=== PATIENT | female | born 1945 | race Caucasian/White ===

== ENCOUNTER 2019-09-23 09:27 | Inpatient (IN) ==
[2019-09-23] MEDS ORDERED: NS 1,000 ML IV ONE ×2 (10:04→12:50)
--- NOTE | 2019-09-23 10:23 | PROVIDER DOCUMENTATION ---
HPI-Female /OB/Breast - General Chief Complaint: Flank Pain Stated Complaint: KIDNEY STONE Time Seen by Provider: 09/23/19 10:04 Source: reports: patient Allergies/Adverse Reactions: Patient Allergies Allergy/AdvReac Type Severity Reaction Status Date / Time No Known Allergies Allergy Verified 09/23/19 10:46 Home Medications: Home Medication List Medication Instructions Recorded Confirmed Last Taken Type Aspirin 325 mg PO DAILY 03/04/18 03/04/18 03/03/18 History Azathioprine [Imuran] 2 tab PO DAILY 03/04/18 03/04/18 03/03/18 History Cefdinir 300 mg PO BID 03/04/18 03/04/18 03/03/18 History Cholecalciferol (Vitamin D3) 1,000 unit PO DAILY 03/04/18 03/04/18 03/03/18 Hi story [Vitamin D3] Estradiol 0.5 tab PO DAILY 03/04/18 03/04/18 03/03/18 History Fenofibrate 160 mg PO DAILY 03/04/18 03/04/18 03/03/18 History Fexofenadine [Melyssa] 180 mg PO DAILY 03/04/18 03/04/18 03/03/18 History Fluticasone 50 Mcg Nasal [place] 1 spray MAXIMUS DAILY PRN 03/04/18 03/04/18 03/03/18 History [Flonase] Losartan [Cozaar] 25 mg PO DAILY 03/04/18 03/04/18 03/03/18 History Mesalamine 1.2 gm PO DAILY 03/04/18 03/04/18 03/03/18 History Metformin E.r. [Glucophage Xr] 2 ahfu PO DAILY 03/04/18 03/04/18 03/03/18 History Modafinil 200 mg PO DIRECTED 03/04/18 03/04/18 03/03/18 History Nitrofurantoin [facility]/Macrocryst 100 mg PO EVERY OTHER DAY 03/04/18 03/04/18 03/03/18 History [Macrobid] Omeprazole 20 mg PO DAILY 03/04/18 03/04/18 03/03/18 History Potassium Chloride 2 tab PO DAILY 03/04/18 03/04/18 03/03/18 History Potassium Citrate [Urocit-K] 15 meq PO BID 08/03/04/18 03/03/18 History Propafenone [Rythmol] 150 mg PO TID 03/04/18 03/04/18 03/03/18 History - History of Present Illness-Female /OB Nature of Presenting Problem: 74yof present to ER with c/o L flank pain onset last night states it has eased up some. Denies fever. Reports hx of kidney stones, with last being in March. Denies urinary s/s. Location of complaint: reports: left flank Radiation: reports: back Quality of Pain: reports: sharp Onset/Duration: reports: last night Timing: reports: still present, improving Vaginal Symptoms: reports: no symptoms Vaginal Bleeding Amount: None Urinary Symptoms: reports: low back pain. denies: dysuria, frequency, hematuria, hesitancy Review of Systems - Adult - REVIEW OF SYSTEMS - ADULT Constitutional: reports: no symptoms reported. denies: chills, fever Eyes: reports: no symptoms reported Ears, Nose, Mouth & Throat: reports: no symptoms reported Cardiovascular: reports: no symptoms reported Respiratory: reports: no symptoms reported. denies: shortness of breath Gastrointestinal: reports: no symptoms reported. denies: nausea, vomiting Genitourinary: reports: see HPI, flank pain. denies: dysuria, frequency, hematuria, hesitency, urgency Musculoskeletal: reports: see HPI, back pain Integumentary: reports: no symptoms reported Neurological: reports: no symptoms reported Psychiatric: reports: no symptoms reported Endocrine: reports: no symptoms reported Hematologic/Lymphatic: reports: no symptoms reported Allergic/Immunologic: reports: no symptoms reported All Other Systems: Reviewed and Negative Past History - Adult - PAST MEDICAL HISTORY-ADULT Review of Records: reports: Old Records Reviewed, Nursing Assessment Review, Medications Reviewed, Social history reviewed & non-contributory. Major Childhood Illnesses: reports: denies history Cardiovascular: reports: denies history Respiratory: reports: denies history Gastrointestinal: reports: cholelithiasis, Crohn's, GERD Obstetrical/Gynecological: reports: denies history Genitourinary: reports: denies history Musculoskeletal: reports: denies history Neurological: reports: denies history Psychiatric: reports: denies history Endocrine/Immune: reports: denies history Other Conditions: reports: denies history - PRIOR SURGERIES/PROCEDURES Surgical/Procedure History: reports: appendectomy, colonoscopy, cholecystectomy, hysterectomy, bowel surgery - FAMILY HISTORY Family History: diabetes, cancer - SOCIAL HISTORY Smoking: denies Physical Exam-General - PHYSICAL EXAM-ADULT Initial Vital Signs Reviewed: Yes - CONSTITUTIONAL General Appearance: alert, no apparent distress - HEAD, EARS, NOSE, MOUTH & THROAT HENMT: moist mucous membranes - NECK Neck: full range of motion, supple, normal inspection - RESPIRATORY Respiratory: lungs clear, normal breath sounds, no respiratory distress, no accessory muscle use - CARDIOVASCULAR Cardiovascular: regular rate, rhythm - GASTROINTESTINAL (ABDOMEN) Abdominal Exam: normal bowel sounds, non tender, soft. negative: distended, guarding, rigid, rebound - LYMPHATIC Lymphatic: no adenopathy - MUSCULOSKELETAL Back Exam: normal inspection, CVA tenderness (L) Extremity: normal range of motion, normal gait, normal inspection - SKIN Integumentary: normal color, warm/dry. negative: diaphoresis, pallor - NEUROLOGIC Neurologic: grossly normal, no motor/sensory deficits - PSYCHIATRIC Psych/Mental Status: normal mood/affect, normal thought content, normal thought process Progress - PLAN OF CARE/RESULTS Progress/Plan/Lab Results: Vital Signs - 8 hr 09/23/19 09:51 09/23/19 11:28 Temperature 97 F L Pulse Rate 90 90 Respiratory Rate 16 18 Blood Pressure 89/54 117/61 O2 Sat by Pulse Oximetry 98 97 Laboratory Results - last 24 hr 09/23/19 09/23/19 09/23/19 10:26 10:26 10:29 WBC 10.83 H RBC 3.78 L Hgb 11.8 L Hct 37.9 MCV 100.3 H MCH 31.2 H MCHC 31.1 L RDW Std Deviation 17.0 H Plt Count 307 MPV 9.4 Immature Gran % (Auto) 0.5 Neut % (Auto) 93.5 H Lymph % (Auto) 2.6 L [facility] % (Auto) 3.2 Eos % (Auto) 0.0 Baso % (Auto) 0.2 Immature Gran # (Auto) 0.05 H Neut # (Auto) 10.13 H Lymph # (Auto) 0.28 L [facility]lor # (Auto) 0.35 Eos # (Auto) 0.00 Baso # (Auto) 0.02 Sodium 140 Potassium 3.3 L Chloride 109 H Carbon Dioxide 13 L Anion Gap 18 BUN 24 H Creatinine 1.9 H Estimated GFR/1.73 m2 26 BUN/Creatinine Ratio 13 Glucose 146 H Calculated Osmolality 286 Calcium 8.9 Total Bilirubin 0.50 AST 13 ALT 5 L Alkaline Phosphatase 123 H Total Protein 5.8 L Albumin 3.6 Globulin 2.2 Albumin/Globulin Ratio 1.6 Lipase 58 Plasma Lactate Urine Source CLEAN CATCH Urine Color ORANGE Urine Turbidity TURBID Urine pH 6.5 Ur Specific [place] 1.030 Urine Protein 200 A Ur Glucose (Stick) NEGATIVE Ur Ketones (Stick) NEGATIVE Urine Blood MODERATE A Urine Nitrite NEGATIVE Urine Bilirubin NEGATIVE Urobilinogen Dipstick NORMAL Urine Leukocytes LARGE A Urine WBC (Auto) TNTC A Urine RBC (Auto) 20-40 A U Epithel Cells (Auto) <10 Urine Bacteria (Auto) 3+ Urine Crystals Not Reportable Small Round Cells Not Reportable Urine Casts GRANULAR PRESENT Urine Yeast-like Cells Not Reportable 09/23/19 11:50 WBC RBC Hgb Hct MCV MCH MCHC RDW Std Deviation Plt Count MPV Immature Gran % (Auto) Neut % (Auto) Lymph % (Auto) Baylor % (Auto) Eos % (Auto) Baso % (Auto) Immature Gran # (Auto) Neut # (Auto) Lymph # (Auto) [facility]lor # (Auto) Eos # (Auto) Baso # (Auto) Sodium Potassium Chloride Carbon Dioxide Anion Gap BUN Creatinine Estimated GFR/1.73 m2 BUN/Creatinine Ratio Glucose Calculated Osmolality Calcium Total Bilirubin AST ALT Alkaline Phosphatase Total Protein Albumin Globulin Albumin/Globulin Ratio Lipase Plasma Lactate 2.7 H Urine Source Urine Color Urine Turbidity Urine pH Ur Specific [place] Urine Protein Ur Glucose (Stick) Ur Ketones (Stick) Urine Blood Urine Nitrite Urine Bilirubin Urobilinogen Dipstick Urine Leukocytes Urine WBC (Auto) Urine RBC (Auto) U Epithel Cells (Auto) Urine Bacteria (Auto) Urine Crystals Small Round Cells Urine Casts Urine Yeast-like Cells Orders Category Date Time Status NEWS Score 2-4:Order NEWS Lactate Series NOW Care 09/23/19 09:56 Active Repeat Vital Signs .Blood Pressure Care 09/23/19 10:[address] RENAL STONE SEARCH [CT] Stat Exams 09/23/19 10:29 Completed BLOOD CULTURE [BLDCUL] Stat Lab 09/23/19 11:40 Results CBC WITH DIFF [HEME] Stat Lab 09/23/19 10:26 Completed COMPREHENSIVE METABOLIC PANEL [CHEM] Stat Lab 09/23/19 10:26 Completed LACTATE, PLASMA [CHEM] Lab 09/23/19 11:50 Completed LACTATE, PLASMA [CHEM] Lab 09/23/19 13:00 Uncollected LACTATE, PLASMA [CHEM] Lab 09/23/19 16:00 Uncollected LIPASE [CHEM] Stat Lab 09/23/19 10:26 Completed URINALYSIS W/POSS RFLX CULT [URINALYSIS] Stat Lab 09/23/19 10:29 Completed URINE CULTURE [RM] Routine Lab 09/23/19 12:18 Ordered URINE MANUAL MICROSCOPIC [URINALYSIS] Stat Lab 09/23/19 10:29 Completed 0.9% Sodium Chloride Inj [Ns] 1,000 ml Med 09/23/19 10:04 Discontinued IV 999 mls/hr 0.9% Sodium Chloride Inj [Ns] 1,000 ml Med 09/23/19 12:50 Active IV 999 mls/hr CefTRIAXONE [Rocephin] 1 gm Med 09/23/19 10:56 Discontinued 0.9% Sodium Chloride Inj [Ns] 50 ml IV NOW Result Diagrams: 09/23/19 10:26 09/23/19 10:26 - REASSESSMENT Reassessment #1 Time Reassessed: 12:25 (discussed pt with Dr Combs, agrees need for possible admission and suggests consulting urology. Reviewed results thus far with pt and family member. Pt states pain is tolerable at this time ) - CT/MRI 2 CT Study: Renal Stone Impression: See EMR Report (EXAM: CT RENAL STONE SEARCH INDICATION: flank pain TECHNIQUE: This exam was performed using automated exposure control, adjustment of mA or kV according to patient size, and/or use of iterative reconstruction technique. COMPARISON: None. FINDINGS: There is a tiny hypodense focus associated with the posterior right hepatic lobe, likely a small cyst. The liver is unremarkable, otherwise. There has been a prior cholecystectomy. The spleen, pancreas, and adrenal glands are unremarkable. There is a large 9 mm obstructing stone at the left UPJ with associated moderate to severe hydronephrosis. There is extensive perinephric stranding on the left. There are a couple of punctate nonobstructing intrarenal stones on the right. The urinary bladder is largely nondistended and is grossly unremarkable, otherwise. There has been a prior hysterectomy. There is mild uncomplicated diverticulosis coli. There is fatty infiltration associated with the wall of the distal small bowel, which is often associated with chronic Crohn's disease, for which there is a reported history. The duodenal bulb also appears to be distended and there is mild focal narrowing of the duodenum just distal to this. These findings could be related to previous surgery. Please correlate clinically. IMPRESSION: 1.Bilateral nephrolithiasis with a large 9 mm obstructing stone at the left UPJ and associated moderate to severe left hydronephrosis. 2.Other incidental/nonacute findings detailed above. Electronically signed by Chad Fuentes 09/23/2019 12:01 PM) - CONSULTS/PCP/HOSPITALIST Notification #1 *Consult/PCP/Hospitalist*: Dr Harrell Time Discussed: 12:30 (may consult him but states "no urological emergency" at this time.) #2 Consult: Maci LANZA Time Discussed: 12:57 (Dr Stanton) Consult Disposition: Admit Departure - Departure Date of Disposition Decision: 09/23/19 Time of Disposition Decision: 12:25 DIAGNOSIS: Nephrolithiasis, Acute kidney injury Hydronephrosis Qualifiers: Hydronephrosis type: unspecified Qualified Code(s): N13.30 - Unspecified hydronephrosis UTI (urinary tract infection) Qualifiers: Urinary tract infection type: acute cystitis Hematuria presence: with hematuria Qualified Code(s): N30.01 - Acute cystitis with hematuria Disposition: ADMITTED INPATIENT 09 Certified Medical Emergency: Emergent Condition: Fair Referrals and Follow-Ups: Darion Joya DO [Primary Care Provider] - - Critical Care Note This patient required my direct & personal management of CC.: No Attestation - Physician/ LUDY Attestation Patient care was provided by Advanced Practice Provider:: Yes Advanced Practice Provider:: Janet Contreras Advanced Practice Provider documentation review:: The Mid-level provider documentation, treatment plan and medical decision making was reviewed by the physician who agrees with all treatment and medical decision making by the MLP. The physician spent face to face time with patient:: No Advanced Practice Provider documentation review:: Supervising physician onsite and consulted in the evaluation and care of this patient. The physician did not have a face to face encounter with the patient.
[2019-09-23 10:36] LABS: URINE SOURCE CLEAN CATCH
[2019-09-23 10:41] LABS: BASO# 0.02 X1000 (0.0-0.2); BASO% 0.2 % (0.0-0.8); HEMATOCRIT 37.9 % (37.0-47.0); HEMOGLOBIN 11.8 g/dL (12.0-16.0); IMM GRAN# 0.05 X1000 (0.0-0.04); IMM GRAN% 0.5 % (0.0-0.5); LYMPH# 0.28 X1000 (1.2-3.4); LYMPH% 2.6 % (20.5-51.1); MCH 31.2 PG (27-31); MCHC 31.1 g/dL (33-37); MCV 100.3 FL (81-99); MONO# 0.35 X1000 (0.11-0.59); MONO% 3.2 % (1.7-9.3); MPV 9.4 FL (7.4-10.4); NEUT# 10.13 X1000 (1.4-6.5); NEUT% 93.5 % (42.2-75.2); PLT 307 X1000 (130-400); RBC 3.78 XMIL (4.2-5.4); WBC 10.83 X1000 (4.8-10.8)
[2019-09-23 10:44] LABS: BILIRUBIN URINE NEGATIVE (NEGATIVE); BLOOD URINE MODERATE (NEGATIVE); COLOR ORANGE; GLUCOSE URINE NEGATIVE (NEGATIVE); KETONE URINE NEGATIVE (NEGATIVE); LEUKOCYTES URINE LARGE (NEGATIVE); NITRITE URINE NEGATIVE (NEGATIVE); PH URINE 6.5; PROTEIN URINE 200 mg/dL (NEGATIVE); TURBIDITY URINE TURBID (CLEAR); UROBILINOGEN URINE NORMAL (NORMAL)
[2019-09-23 10:55] LABS: UR EPITHELIAL CELLS <10 /HPF (<10); URINE BACTERIA 3+ /HPF; URINE RBC 20-40 /HPF (<10); URINE WBC TNTC /HPF (<10)
[2019-09-23] MEDS ORDERED: ROCEPHIN 1 GM in NS 50 ML IV ONE (10:56)
[2019-09-23 11:00] LABS: ALB/GLOB RATIO 1.6; ALBUMIN 3.6 g/dL (3.5-5.0); CALCIUM 8.9 mg/dL (8.8-10.2); CREATININE 1.9 mg/dL (0.5-0.9); POTASSIUM 3.3 mmol/L (3.5-5.1); TOTAL BILIRUBIN 0.5 mg/dL (0.20-1.00); TOTAL PROTEIN 5.8 g/dL (6.3-8.3)
[2019-09-23 11:09] LABS: URINE CASTS GRANULAR PRESENT
--- NOTE | 2019-09-23 12:03 | Diag Imaging Result Doc PS360 ---
EXAM: CT RENAL STONE SEARCH INDICATION: flank pain TECHNIQUE: This exam was performed using automated exposure control, adjustment of mA or kV according to patient size, and/or use of iterative reconstruction technique. COMPARISON: None. FINDINGS: There is a tiny hypodense focus associated with the posterior right hepatic lobe, likely a small cyst. The liver is unremarkable, otherwise. There has been a prior cholecystectomy. The spleen, pancreas, and adrenal glands are unremarkable. There is a large 9 mm obstructing stone at the left UPJ with associated moderate to severe hydronephrosis. There is extensive perinephric stranding on the left. There are a couple of punctate nonobstructing intrarenal stones on the right. The urinary bladder is largely nondistended and is grossly unremarkable, otherwise. There has been a prior hysterectomy. There is mild uncomplicated diverticulosis coli. There is fatty infiltration associated with the wall of the distal small bowel, which is often associated with chronic Crohn's disease, for which there is a reported history. The duodenal bulb also appears to be distended and there is mild focal narrowing of the duodenum just distal to this. These findings could be related to previous surgery. Please correlate clinically. IMPRESSION: 1.Bilateral nephrolithiasis with a large 9 mm obstructing stone at the left UPJ and associated moderate to severe left hydronephrosis. 2.Other incidental/nonacute findings detailed above. Electronically signed by Chad Fuentes 09/23/2019 12:01 PM
[2019-09-23] MEDS ORDERED: NS 500 ML IV ONE (13:01)
[2019-09-23 13:57] LABS: INR 1.06; PROTIME 13.9 Seconds (11.0-16.0)
[2019-09-23 13:58] LABS: PTT 33.3 Seconds (22.3-41.8)
--- NOTE | 2019-09-23 14:00 | Diag Imaging Result Doc PS360 ---
EXAM: CHEST-1 VIEW 09/23/2019 HISTORY: NEWS score TECHNIQUE: AP portable at 1348 COMMENT: There is platelike opacity in the lingula which was also present on 03/04/2018. Otherwise are has been no significant change. IMPRESSION: Stable chest. Electronically signed by Richard Gregg 09/23/2019 1:57 PM
[2019-09-23] MEDS: NS 1,000 ML IV SCH (15:03)
[2019-09-23] MEDS ORDERED: ZOFRAN IV PRN (15:03)
[2019-09-23] MEDS: TYLENOL PO PRN (15:15)
[2019-09-23] MEDS ORDERED: ZOSYN 3.375 GM in NS 50 ML IV SCH (17:00)
[2019-09-23] MEDS ORDERED: KLOR-CON PO ONE (17:23)
[2019-09-23] MEDS: ZOSYN 2.25 GM in NS 50 ML IV SCH ×2 (18:00→23:30)
--- NOTE | 2019-09-23 18:14 | EKG Report ---
Test Performed on : 09/23/2019 5:38:48 PM Test Reason : afib Blood Pressure : / mmHG Vent. Rate : 099 BPM Atrial Rate : 100 BPM P-R Int : 200 ms QRS Dur : 080 ms QT Int : 314 ms P-R-T Axes : 047 -05 073 degrees QTc Int : 402 ms Sinus rhythm. with premature supraventricular complexes. Inferior infarct (cited on or before 04-MAR-2018) Cannot rule out Anterior infarct , age undetermined Nonspecific T wave abnormality Abnormal ECG When compared with ECG of 04-MAR-2018 08:45, premature supraventricular complexes. are now present Nonspecific T wave abnormality, worse in Inferior leads Nonspecific T wave abnormality, worse in Anterolateral leads Confirmed by Demian Jimenez MD ([id number]) on 09/23/2019 8:30:39 PM
[2019-09-23] MEDS ORDERED: LEVOPHED 8 MG in D5 1/2 NS 250 ML IV SCH (18:15)
--- NOTE | 2019-09-23 19:24 | HISTORY AND PHYSICAL ---
ADDENDUM: The patient was seen and examined by me face to face. The laboratory, vital signs and images were reviewed. This patient presented to the emergency department due to left flank pain that started yesterday during the night. She has a history of Crohn disease, previous kidney stones, and actually she apparently had surgery done last year in March at [facility]. She denies any urinary symptoms, but the urinalysis looks infected. She has CVA tenderness. A CT scan showed a 9 mm obstructing stone at the left UPJ and associated moderate to severe left hydronephrosis. Urology Department has been consulted. She has been placed on antibiotics and IV fluids. The problem is that her blood pressure has been running low even though she received at least 3 L of IV fluids and now she is getting normal saline at 125 mL/h. Her systolic blood pressure has been in the 80s and 90s. I will transfer this patient to the ICU just in case I need to use a vasopressor. As per the patient, she has a history of atrial fibrillation that is controlled with Rythmol, but at this moment, she is on sinus rhythm. Also she has a history of diabetes, and I do not see any insulin listed but metformin. I will hold for now any blood pressure medication. I will try to avoid as much as we can pain medication. She seems to have an acute on chronic kidney disease. Continue with IV fluids. The patient will be transferred to the ICU. She will be placed on IV fluids. She will be on broad-spectrum antibiotics. She had a fever of 101.7. She has a history of kidney stones, and she had a surgery last March because of that. She is septic. I agree with the rest of the nurse practitioner's assessment and plan. cc: Carlitos Fletcher MD
--- NOTE | 2019-09-23 20:00 | CONSULTATION ---
DATE OF CONSULTATION: 09/23/2019 REQUESTING PHYSICIAN: Emergency department. REASON FOR CONSULTATION: Left obstructing stone, hydronephrosis and flank pain. HISTORY OF PRESENT ILLNESS: This is a 74-year-old female with a previous history of recurrent urolithiasis who has been followed by Dr. Angel in [place] who developed severe left flank pain 1 day ago. She stated that the pain was in the flank and back. It has been intermittent. It has been severe up to a 10/10 scale. It does not radiate. Nothing made it better. Nothing made it worse. The pain was sharp in quality. She reports associated vomiting. She reports associated chills but denies documented fevers. Her past medical history is significant for Crohn disease, and she was attributing having stones on account of being dehydrated from Crohn's. She has had several procedures endoscopically to remove her stones, with the most recent one reportedly in March 2019 on the right side. PAST MEDICAL HISTORY: Crohn disease, allergic rhinitis, hypertension, diabetes mellitus. PAST SURGICAL HISTORY: Hysterectomy, cholecystectomy, appendectomy, colectomy for Crohn's, resection of ilium for Crohn disease, several ureteroscopies with laser lithotripsy and stone basket extraction with stent. ALLERGIES: No known drug allergies. HOME MEDICATIONS: Potassium citrate, potassium chloride, metformin, losartan, Melyssa, estradiol, fenofibrate, Imuran, aspirin. SOCIAL HISTORY: Denies tobacco, alcohol or illicit drug use. FAMILY HISTORY: Her daughter has extensive urolithiasis. REVIEW OF SYSTEMS: Reviewed and 12 systems negative except for the HPI. PHYSICAL EXAMINATION: T 101.7, P 107, BP 144/69.General: Pleasant female in no acute distress. HEENT: Normocephalic, atraumatic. Cardiovascular: Tachycardic. Regular rhythm. Pulmonary: Bilateral breath sounds. Abdomen: Soft, nontender, nondistended. Well-healed midline scar. Back: No CVA tenderness. Lymphatic: No cervical lymphadenopathy. No groin lymphadenopathy. Dermatologic: No obvious skin rashes. Neurologic: Alert and oriented x3. Psychiatric: Appropriate mood and affect. PERTINENT LABORATORY DATA: White cell count is 11,000. Creatinine is 1.9. Glucose is 146. Urinalysis is positive for bacteria, blood and white cells. PERTINENT IMAGES: CT abdomen and pelvis with renal stone search on 09/23/2019 revealing 2 mm and 2 mm right renal stones as well as a 9 mm left ureteropelvic junction stone with obstruction, with hydronephrosis and perinephric stranding. ASSESSMENT AND PLAN: A 74-year-old female with history of urolithiasis who has an obstructing left ureteral stone. She has documented fever. She currently states she is feeling better, and her pain is well controlled. I have discussed with her that given her concomitant diabetes, hydronephrosis and urinary tract infection, she would benefit from intervention with cystoscopy with ureteral stent placement and treatment for urinary tract infection, followed by left extracorporeal shockwave lithotripsy and stent removal at a later date. We discussed the risks of the procedure, including but not limited to bleeding, infection, injury to the adjacent structures and need for additional interventions. She voiced understanding and wished to proceed. PLAN: 1. I agree with IV fluids and broad-spectrum antibiotics for now. 2. Agree with urine culture and blood cultures. 3. N.p.o. after midnight for going to operating room tomorrow for cystoscopy and left ureteral stent placement. Thank you for this consultation. cc: Imtiaz Harrell MD
[2019-09-23] MEDS: HUMALOG SUBQ SCH (20:52)
[2019-09-24] MEDS: NS 1,000 ML IV SCH (00:28)
[2019-09-24] MEDS: TYLENOL PO PRN ×2 (06:10→17:21)
[2019-09-24] MEDS: ZOSYN 2.25 GM in NS 50 ML IV SCH ×4 (06:10→23:15)
[2019-09-24] MEDS: PRILOSEC PO SCH (07:23)
[2019-09-24] MEDS: HUMALOG SUBQ SCH ×4 (07:28→22:31)
[2019-09-24 08:25] LABS: AGAP 17; ALBUMIN 2.3 g/dL (3.5-5.0); ALKALINE PHOSPHATASE 77 U/L (32-104); BASO# 0.01 X1000 (0.0-0.2); BASO% 0.1 % (0.0-0.8); BUN 19 mg/dL (8-22); CALCIUM 7.6 mg/dL (8.8-10.2); CHLORIDE 118 mmol/L (98-107); COSMO 287; CREATININE 1.7 mg/dL (0.5-0.9); EOS# 0.02 X1000 (0.0-0.7); EOS% 0.3 % (0.0-10.0); ESTIMATED GFR 29; GLUCOSE 98 mg/dL (70-104); GOT 15 U/L (10-30); GPT < 5 U/L (10-36); HEMOGLOBIN 8.4 g/dL (12.0-16.0); IMM GRAN# 0.03 X1000 (0.0-0.04); IMM GRAN% 0.4 % (0.0-0.5); LYMPH# 0.31 X1000 (1.2-3.4); LYMPH% 4.4 % (20.5-51.1); MCH 30.7 PG (27-31); MCV 102.2 FL (81-99); MONO# 0.64 X1000 (0.11-0.59); MONO% 9.1 % (1.7-9.3); MPV 9.2 FL (7.4-10.4); NEUT% 85.7 % (42.2-75.2); PLT 201 X1000 (130-400); RBC 2.74 XMIL (4.2-5.4); RDW 17.1 % (11.5-14.5); SODIUM 143 mmol/L (136-145); TCO2 8 mmol/L (25-35); TOTAL BILIRUBIN 0.34 mg/dL (0.20-1.00); TOTAL PROTEIN 4.7 g/dL (6.3-8.3); WBC 7.01 X1000 (4.8-10.8)
[2019-09-24 08:26] LABS: MAGNESIUM 0.9 mg/dL (1.5-2.7); POTASSIUM 2.5 mmol/L (3.5-5.1)
[2019-09-24] MEDS ORDERED: MAGNESIUM SULFATE 2 GM/S.W.I. 2 GM/50 ML IVPB IV ONE (08:32)
[2019-09-24] MEDS ORDERED: POTASSIUM CHLORIDE 20% LIQUID PO ONE (08:32)
[2019-09-24 08:54] LABS: HEMOGLOBIN A1C 5.6 % (4.8-6.0)
--- NOTE | 2019-09-24 08:56 | PROGRESS NOTE ---
DATE: 09/24/2019 SUBJECTIVE: This patient is resting comfortably in bed. She is still complaining of left flank pain. Hopefully, today she will go for a procedure so they can remove the stone. Urology Department on board. OBJECTIVE: Vital Signs: Temperature 98.9 degrees, pulse 100, respiratory rate 19, blood pressure 106/48, oxygen saturation 97% on 2 liters of nasal cannula. HEENT: Head normocephalic, no trauma. PERRLA. Neck: Supple. No JVD. No masses. Central trachea. Chest: Clear to auscultation. No wheezing. No rales. Abdomen: Soft, some discomfort to palpation at the level of the left flank, some CVA tenderness as well. Extremities: No edema, no clubbing, no cyanosis. Neurological: Patient is sleepy, but arousable. She is oriented x3. She is following commands and answering my questions. LABORATORY: Pending lab work at this moment. ASSESSMENT AND PLAN: 1. Obstructing left ureteral stone with hydronephrosis. She has been having fever. I will continue with intravenous fluids. I will continue with antibiotics. Urine culture and blood cultures so far negative. Hopefully, today she will have a procedure done so we can remove the stone. 2. History of Crohn disease. We will continue with her home medications once this patient is able to tolerate oral intake. 3. Hypertension, stable. 4. Diabetes, continue with same management. 5. Possible history of atrial fibrillation. As per the patient she has been taking Rythmol 3 times a day to control the rate, but she is not on any kind of blood thinners. During this hospitalization, she has been in sinus rhythm. 6. Sepsis due to urinary tract infection, aware. Continue with same management. 7. Electrolyte imbalance including hypomagnesemia and hypokalemia. We will recheck the electrolytes today again and monitor. cc: Carlitos Fletcher MD
[2019-09-24] MEDS: POTASSIUM CHLORIDE 20 MEQ in 1/2 NS 1,000 ML IV SCH ×2 (09:44→21:49)
[2019-09-24] MEDS ORDERED: FENTANYL ONE (10:30)
[2019-09-24 10:41] LABS: BANDS 6 % (0-1); LYMPHS 4 % (21-51); MONO 6 % (1-9); SEGS 84 % (42-75)
--- NOTE | 2019-09-24 12:46 | HISTORY AND PHYSICAL ---
PRIMARY CARE PROVIDER: Dr. Darion Joya. UROLOGY: Dr. Moore GASTROENTEROLOGY: Dr. Vance. CHIEF COMPLAINT: Kidney stones. HISTORY OF PRESENT ILLNESS: Ms. Arciniega is a 74-year-old female with a past medical history of multiple kidney stones in the past, atrial fibrillation, Crohn's disease, GERD, hypertension, hyperlipidemia. She come to the ED today complaining of left flank pain that started the night before. Workup in the ED showed bilateral nephrolithiasis with a large 9 mm obstructing stone at the left UPJ associated with moderate to severe left hydronephrosis. She was also found to be septic, given IV fluid boluses, started on Rocephin. We have changed her over to Zosyn. Dr. Harrell was consulted and she was moved to the ICU with p.r.n. Levophed drip secondary to some low blood pressures. PAST MEDICAL HISTORY: Kidney stones, Crohn's disease, GERD, atrial fibrillation, hypertension, hyperlipidemia, arthritis. She wears braces on both of her ankles. Diabetes mellitus type 2, on oral medication only. PAST SURGICAL HISTORY: Appendectomy, colonoscopy, cholecystectomy, hysterectomy. Sounds like she has had some portions of her colon taken out secondary to her Crohn's disease. FAMILY HISTORY: Sister with breast cancer. Another sister with diabetes. A brother with diabetes. ALLERGIES: No known drug allergies. HOME MEDICATIONS: Melyssa, Cozaar, Flonase, Glucophage XR, Imuran, Lialda, Lipitor, Neurontin, potassium, Prilosec, Provigil, Rythmol, Travatan Z, vitamin D3. REVIEW OF SYSTEMS: A 12-point review of systems completely negative except for those mentioned in HPI. She did report some fevers and some chills. Left CVA tenderness. No chest pain. No palpitations. No shortness of breath. Reported fevers at home that started on 09/23/2019. PHYSICAL EXAMINATION: VITAL SIGNS: Temperature is 101.7 degrees, heart rate 114, respirations 24, blood pressure was 75/42, O2 is 94% on 2 L nasal cannula. GENERAL: Ms. Arciniega is a 74-year-old female who is sitting up in the bed in no acute distress, complaining of some left-sided CVA tenderness. HEENT: Atraumatic, normocephalic. PERRL. NECK: Supple. Trachea midline. CARDIOVASCULAR: S1-S2 appreciated. No murmurs, gallops or rubs. RESPIRATORY: Lung sounds clear bilaterally. GI: Soft, nontender, nondistended. Positive bowel sounds in 4 quadrants. Left CVA tenderness. MUSCULOSKELETAL: Patient does have braces on both her right and left ankles secondary to arthritis. Did not really appreciate any lower extremity edema, clubbing, or cyanosis. SKIN: Warm, dry and intact. DIAGNOSTIC DATA: Renal CT showed bilateral nephrolithiasis with large 9 mm obstructing stone at the left UPJ associated with moderate to severe left hydronephrosis. Chest x- ray clear. EKG showed sinus rhythm with PVCs, nonspecific T-wave abnormalities. LABORATORY DATA: White count 10, hemoglobin and hematocrit 11 and 37, platelet count is 307,000. Sodium 140, potassium 3.3, BUN 24, creatinine 1.9, blood glucose of 146, magnesium 1.2, troponin of 20, CK of 24. Urinalysis: 3+ bacteria, 20 to 40 RBCs, too numerous to count WBCs, large leukocytes, negative for nitrates, moderate blood. Urine casts present. ASSESSMENT AND PLAN: 1. A 9 mm obstructing stone to the left UPJ associated with left hydronephrosis and positive for urinary tract infection. We will continue with aggressive IV hydration, broad-spectrum antibiotics and pain control. Dr. Harrell has been consulted. I believe the plan is to take her for a cystoscopy in the a.m. for stent placement. 2. Septic shock. The patient was given IV fluids, broad-spectrum antibiotics, blood cultures, urine culture. Her temperature went up to 101.7. We will place her in the intensive care unit if she has a drop in her blood pressures down to the 70s, 80s and 90s for p.r.n. Levophed. 3. Atrial fibrillation, currently in sinus rhythm. She is not currently on any anticoagulation. She does not know why she has not been placed on anticoagulation for her atrial fibrillation. 4. Crohn's disease history with removal of bowel in the past. 5. Diabetes mellitus. We will place her on sliding scale insulin with pattern blood sugars. Check hemoglobin A1c. 6. History of kidney stones, aware. I believe she last had some removed back in March at [facility] where she normally receives all of her care. 7. Urinary tract infection. We will continue with broad-spectrum antibiotics. 8. Acute kidney injury, question some chronic kidney disease. 9. Mild hypokalemia. We will continue to monitor given the increase in her BUN and creatinine. 10. Hypomagnesemia. Will replenish as appropriate. 11. Further recommendation to follow physician evaluation, laboratory and diagnostic data. Dictated by MYLA Rogers for Carlitos Fletcher MD cc: MD Darion Go DO Sergey S. Ananyev, MD MTDCharity
--- NOTE | 2019-09-24 14:16 | Diag Imaging Result Doc PS360 ---
EXAM: FLUROSCOPY CYSTO 09/24/2019 HISTORY: PLACEMENT OF JJ STENT FOR UPJ STONE TECHNIQUE: 10 images, 4.3 mGy, 14 seconds fluoroscopy time. COMMENT: There is placement of a left ureteral stent by Dr. Harrell. No contrast was administered. IMPRESSION: Left ureteral stent placement. Electronically signed by Richard Gregg 09/24/2019 2:14 PM
[2019-09-24] MEDS: RYTHMOL PO SCH (17:06)
--- NOTE | 2019-09-24 18:54 | OPERATIVE NOTE ---
PROCEDURE DATE: 09/24/2019 SURGEON: Dr. Imtiaz Harrell PREOPERATIVE DIAGNOSES: Left ureteropelvic junction stone, hydronephrosis, urinary tract infection, hypertension, fevers, diabetes mellitus. POSTOPERATIVE DIAGNOSES: Left ureteropelvic junction stone, hydronephrosis, urinary tract infection, hypertension, fevers, diabetes mellitus. PROCEDURE NAME: Cystoscopy, placement of 6-Chilean, 24 cm ureteral stent. INDICATIONS: 74-year-old female with diabetes and history of kidney stones who presented with left flank pain and chills. She was found to have a 9 mm obstructing left ureteropelvic junction stone with hydronephrosis. She developed hypotension in the ER. She was admitted and resuscitated with fluids. She was counselled on cysto and left stent placement followed by treatment of her UTI followed by extracorporeal shockwave lithotripsy and stent removal in the future. FINDINGS: She had a bladder full of cloudy urine. Successful stent placement. DESCRIPTION OF PROCEDURE: After obtaining informed consent, patient brought to the operating room. Preoperative antibiotics and anesthesia was administered. She was placed in a lithotomy position. Prepped and draped in a sterile fashion. A 21-Chilean rigid cystoscope was introduced. Her bladder was inspected. She had a full bladder with cloudy urine which was irrigated. The bladder was briefly examined. There was no evidence of mucosal lesions, excessive trabeculations, or diverticula noted. She did have a fairly capacious bladder. Attention was turned to the left ureteral orifice which was cannulated with PTFE wire. It was advanced to the level of left renal pelvis as confirmed by fluoroscopy. We then introduced a 6-Chilean, 24 cm stent over the wire via the cystoscope with the proximal coil position confirmed fluoroscopically. Distal coil directly visualized. The string was removed from the stent. Bladder was emptied and a 16-Chilean Russell catheter was introduced. She was extubated and taken to PACU for further recovery. ESTIMATED BLOOD LOSS: None. COMPLICATIONS: None. DRAINS: A 6-Chilean 24 cm stent. A 16-Chilean Russell catheter. DISPOSITION: To PACU and back to ICU for close observation. I have discussed with her daughter postoperatively that once her UTI is treated, we can perform extracorporeal shockwave lithotripsy and cysto stent removal on an outpatient basis. cc: Imtiaz Harrell MD
[2019-09-24] MEDS: MORPHINE IV PRN (21:49)
[2019-09-25] MEDS: TYLENOL PO PRN ×4 (02:42→20:55)
[2019-09-25] MEDS: PRILOSEC PO SCH (06:15)
[2019-09-25] MEDS: POTASSIUM CHLORIDE 20 MEQ in 1/2 NS 1,000 ML IV SCH ×3 (06:15→20:33)
[2019-09-25] MEDS: ZOSYN 2.25 GM in NS 50 ML IV SCH (06:16)
[2019-09-25] MEDS: HUMALOG SUBQ SCH ×4 (06:36→20:33)
--- NOTE | 2019-09-25 08:20 | Diag Imaging Result Doc PS360 ---
EXAM: CHEST-PORTABLE 09/25/2019 HISTORY: sob TECHNIQUE: AP portable upright at 0755 COMMENT: There is subsegmental atelectasis present in the lingula and both lower lobes. This has not changed appreciably since 09/23/2019. The inspiration is slightly less optimal. IMPRESSION: Bibasilar atelectasis. Electronically signed by Richard Gregg 09/25/2019 8:17 AM
--- NOTE | 2019-09-25 08:56 | PROGRESS NOTE ---
DATE: 09/25/2019 SUBJECTIVE: The patient seems to be stable. She is not complaining of pain at this moment. She had a procedure done yesterday with Urology Department. She is slightly tachycardic. Blood pressure has been in the 100s. Pending lab work today. OBJECTIVE: Vital Signs: Temperature 98 degrees, pulse 102, respiratory rate 18, blood pressure 109/66, oxygen saturation 99 on 3 L of nasal cannula. HEENT: Head normocephalic. No trauma. PERRLA. Neck: Supple. No JVD. No masses. Central trachea. Chest: Clear to auscultation. No wheezing. No rales. Abdomen: Soft. Some discomfort to palpation at the level of the left flank. Mild CVA tenderness as well. Extremities: No edema, no clubbing, no cyanosis. Neurological: The patient is awake, alert. She is oriented x3. She is following commands and answering my questions. LABORATORY: Pending lab work at this moment. ASSESSMENT AND PLAN: 1. Obstructing left ureteral stone with left hydronephrosis status post cystoscopy exam with placement of 6-Burundian ureteral stent. This has been done yesterday, postoperative day #1. Urology Department already discussed the case with her daughter and we are going to treat the UTI first and then they will perform an extracorporeal shockwave lithotripsy cysto stent removal on an outpatient basis. 2. Urinary tract infection with a positive culture that showed Escherichia coli which is basically pansensitive. Blood culture is negative. I will go ahead and stop the Zosyn IV and put her on levofloxacin which has a good sensitivity to this bacteria and upon discharge, she can continue taking it at home by mouth. 3. History of Crohn's disease. Continue with her home medications. 4. Hypertension, stable. Actually she has been in the 100s mostly. 5. Diabetes. Continue with same management. 6. Possible history of atrial fibrillation. This patient has been taking Rythmol 3 times a day to control the rate, but she is not taking any kind of blood thinners. I have been asking her about it multiple times and she states that her doctor did not start blood thinners. 7. Sepsis due to urinary tract infection, aware as per #2. 8. Electrolyte imbalance including hypomagnesemia and hypokalemia. That was replaced yesterday, pending lab work today. cc: Carlitos Fletcher MD
[2019-09-25] MEDS: RYTHMOL PO SCH ×3 (09:01→16:55)
[2019-09-25] MEDS: LIPITOR PO SCH (09:01)
[2019-09-25] MEDS: LEVAQUIN 750 MG/D5W 750 MG/150 ML IVPB IV SCH (09:01)
[2019-09-25] MEDS: IMURAN PO SCH (09:02)
[2019-09-25] MEDS: ALLEGRA PO SCH (09:02)
[2019-09-25] MEDS: LIALDA PO SCH (09:02)
[2019-09-25 09:23] LABS: BASO# 0.01 X1000 (0.0-0.2); BASO% 0.2 % (0.0-0.8); EOS# 0.03 X1000 (0.0-0.7); EOS% 0.6 % (0.0-10.0); HEMATOCRIT 29.6 % (37.0-47.0); HEMOGLOBIN 9.2 g/dL (12.0-16.0); IMM GRAN# 0.03 X1000 (0.0-0.04); IMM GRAN% 0.6 % (0.0-0.5); LYMPH% 7.7 % (20.5-51.1); MCH 31.8 PG (27-31); MCHC 31.1 g/dL (33-37); MCV 102.4 FL (81-99); MONO# 0.55 X1000 (0.11-0.59); MONO% 10.6 % (1.7-9.3); MPV 9.2 FL (7.4-10.4); NEUT# 4.16 X1000 (1.4-6.5); NEUT% 80.3 % (42.2-75.2); PLT 167 X1000 (130-400); RBC 2.89 XMIL (4.2-5.4); RDW 17.3 % (11.5-14.5); WBC 5.18 X1000 (4.8-10.8)
[2019-09-25] MEDS: PROVIGIL PO SCH (09:34)
[2019-09-25 10:06] LABS: CALCIUM 7.7 mg/dL (8.8-10.2); CREATININE 1.5 mg/dL (0.5-0.9); MAGNESIUM 1.5 mg/dL (1.5-2.7); PHOSPHORUS 3.9 mg/dL (2.7-4.5)
--- NOTE | 2019-09-25 12:06 | PROGRESS NOTE ---
DATE: 09/25/2019 Ms. Arciniega had a good night overnight. She reports she is feeling about the same. She denies any chills. VITALS: Pulse 104, Blood pressure 87/46, urine output was recorded about 2,310 mL. PHYSICAL EXAMINATION: General: In no acute distress. Abdomen: Nontender, nondistended. : Russell catheter in place draining straw-colored urine. PERTINENT LABORATORY DATA: White cell count is 5,000. Creatinine is 1.5, down from 1.9. ASSESSMENT AND PLAN: A 74-year-old female who is postoperative day 1, status post cystoscopy and left ureteral stent placement secondary to obstructing stone and concern for urosepsis. Her urine culture has grown Escherichia coli. Her blood cultures are preliminary negative. She states she is feeling about the same. I have discussed with the patient that from a urologic standpoint the stent will stay until we treat the stone with lithotripsy in 1 to 2 weeks. I placed a Russell catheter in postoperatively because she had a full bladder with cloudy appearing urine. I suspect she does not empty secondary to her diabetes and likely could not empty further on account of infection. It is okay to remove Russell catheter by primary team when they were fine with that. PLAN: 1. No further urologic intervention at this time but I will follow her while she is in the hospital. 2. Okay to remove Russell catheter when fine with primary team. 3. We will plan on setting her up for left extracorporeal shockwave lithotripsy, cystoscopy, stent removal once she recovers from the infection. cc: Imtiaz Harrell MD
[2019-09-25] MEDS ORDERED: MAGNESIUM SULFATE 2 GM/S.W.I. 2 GM/50 ML IVPB IV ONE (13:21)
[2019-09-25] MEDS ORDERED: KLOR-CON PO ONE (13:21)
[2019-09-26] MEDS: MORPHINE IV PRN ×2 (01:33→20:48)
[2019-09-26] MEDS: PRILOSEC PO SCH ×2 (05:47→06:03)
[2019-09-26] MEDS: POTASSIUM CHLORIDE 20 MEQ in 1/2 NS 1,000 ML IV SCH (05:48)
[2019-09-26] MEDS: HUMALOG SUBQ SCH ×5 (06:03→20:53)
[2019-09-26 06:46] LABS: BASO# 0.01 X1000 (0.0-0.2); BASO% 0.2 % (0.0-0.8); EOS# 0.01 X1000 (0.0-0.7); EOS% 0.2 % (0.0-10.0); HEMATOCRIT 28.3 % (37.0-47.0); HEMOGLOBIN 8.7 g/dL (12.0-16.0); IMM GRAN# 0.03 X1000 (0.0-0.04); IMM GRAN% 0.6 % (0.0-0.5); LYMPH# 0.37 X1000 (1.2-3.4); LYMPH% 7.6 % (20.5-51.1); MCH 30.7 PG (27-31); MCHC 30.7 g/dL (33-37); MONO# 0.59 X1000 (0.11-0.59); MONO% 12.1 % (1.7-9.3); MPV 9.9 FL (7.4-10.4); NEUT# 3.88 X1000 (1.4-6.5); NEUT% 79.3 % (42.2-75.2); PLT 201 X1000 (130-400); RBC 2.83 XMIL (4.2-5.4); RDW 16.6 % (11.5-14.5); WBC 4.89 X1000 (4.8-10.8)
[2019-09-26 07:33] LABS: CALCIUM 8.3 mg/dL (8.8-10.2); CREATININE 1.5 mg/dL (0.5-0.9); MAGNESIUM 1.8 mg/dL (1.5-2.7); PHOSPHORUS 3.2 mg/dL (2.7-4.5); POTASSIUM 3.1 mmol/L (3.5-5.1)
[2019-09-26] MEDS: LEVAQUIN 750 MG/D5W 750 MG/150 ML IVPB IV SCH (09:11)
[2019-09-26] MEDS: KLOR-CON PO SCH (09:11)
[2019-09-26] MEDS: IMURAN PO SCH (09:11)
[2019-09-26] MEDS: LIPITOR PO SCH (09:12)
[2019-09-26] MEDS: LIALDA PO SCH (09:12)
[2019-09-26] MEDS: ALLEGRA PO SCH (09:12)
[2019-09-26] MEDS: RYTHMOL PO SCH ×3 (09:12→17:22)
[2019-09-26] MEDS: PROVIGIL PO SCH (09:22)
[2019-09-26] MEDS: TYLENOL PO PRN ×2 (09:23→16:04)
--- NOTE | 2019-09-26 09:28 | PROGRESS NOTE ---
DATE: 09/26/2019 SUBJECTIVE: The patient seems to be stable. She is not complaining of abdominal pain at this moment. She is just slightly short of breath but no chest pain. She has been tachycardic on and off, and seems to be chronic. She is acidotic. I will stop the IV fluids today since she is eating fine and I want this patient to walk and do some more physical activity, sit at the bedside. Continue with antibiotics. OBJECTIVE: Vital Signs: Temperature 98.5 degrees, pulse 108, respiratory rate 20, blood pressure 126/49, oxygen saturation 98 on room air. HEENT: Head normocephalic. No trauma. PERRLA. Neck: Supple. No JVD. No masses. Central trachea. Chest: Clear to auscultation. No wheezing. Some crepitus at the bases. Abdomen: Soft, nontender, nondistended. No hepatosplenomegaly. Mild CVA tenderness. Extremities: No edema. No clubbing. No cyanosis. Neurological Examination: The patient is awake. She is alert. She is oriented. She is following commands and answering my questions. Laboratory: WBC 4.8, hemoglobin 8.7, hematocrit 28.3, platelet count 201,000. Sodium 141, potassium 3.1, chloride 104, bicarbonate 10, BUN 16, creatinine 1.5, glucose 110, calcium 8.3, magnesium 1.8. ASSESSMENT AND PLAN: 1. Obstructing left ureteral stone with left hydronephrosis, status post cystoscopic exam with placement of 6-Libyan ureteral stent, postoperative day #2. Urology department already discussed the case with the patient and apparently with the daughter as well, and they will continue to follow this patient as an outpatient. They want this patient's urinary tract infection to be treated first. 2. Urinary tract infection with a positive culture that showed Escherichia coli which is basically pansensitive. Blood cultures negative. Continue with levofloxacin. 3. History of Crohn's disease. Aware. Continue home medication. 4. Hypertension, stable. 5. History of atrial fibrillation. She has been tachycardic on and off and it has been controlled with her home medications. 6. Diabetes. Continue with the same management. 7. Sepsis due to urinary tract infection, aware, per #2. Continue with the same management. 8. Electrolyte imbalance including hypomagnesemia and hypokalemia. Hypomagnesemia is resolved. Potassium is still low and I will replace it again. 9. My plan is to discharge this patient tomorrow. She is acidotic. I want her to walk a little bit today. She is eating fine. cc: Carlitos Fletcher MD
[2019-09-27] MEDS: TYLENOL PO PRN ×2 (00:23→09:31)
[2019-09-27 06:18] LABS: CREATININE 1.5 mg/dL (0.5-0.9); POTASSIUM 3.2 mmol/L (3.5-5.1)
[2019-09-27] MEDS: HUMALOG SUBQ SCH (06:19)
[2019-09-27] MEDS: PRILOSEC PO SCH (06:22)
[2019-09-27 08:12] VITALS: BP 132/69
[2019-09-27] MEDS: IMURAN PO SCH (08:22)
[2019-09-27] MEDS: RYTHMOL PO SCH (08:22)
[2019-09-27] MEDS: ALLEGRA PO SCH (08:22)
[2019-09-27] MEDS: LEVAQUIN 750 MG/D5W 750 MG/150 ML IVPB IV SCH (08:22)
[2019-09-27] MEDS: LIPITOR PO SCH (08:22)
[2019-09-27] MEDS: KLOR-CON PO SCH (08:22)
[2019-09-27] MEDS: PROVIGIL PO SCH (08:23)
[2019-09-27] MEDS: LIALDA PO SCH (08:23)
--- NOTE | 2019-09-27 18:32 | DISCHARGE SUMMARY ---
ADMISSION DATE: 09/23/2019 DISCHARGE DATE: 09/27/2019 DISCHARGE DIAGNOSES: 1. Obstructing left ureteral stone with left hydronephrosis, status post cystoscopic exam with placement of 6-[place] Islander ureteral stent, postoperative day #3. 2. Urinary tract infection with positive culture that showed Escherichia coli. 3. Sepsis due to urinary tract infection. 4. History of Crohn's disease. 5. Hypertension. 6. History of atrial fibrillation. 7. Diabetes. 8. Electrolyte imbalance. PROCEDURES PERFORMED: 1. Renal CT scan dated 09/23/2019, impression: Bilateral nephrolithiasis with a large 9 mm obstructing stone at the left UPJ and associated moderate to severe left hydronephrosis. 2. Chest x-ray dated 09/23/2019, impression: Stable chest. 3. Chest x-ray dated 09/25/2019, impression: Bibasilar atelectasis, left ureteropelvic junction stone, hydronephrosis, status post cystoscopic exam with placement of 6-[place]er 24 cm ureteral stent, dated 09/24/[address] Harrell. HOSPITAL COURSE: 74-year-old female with a past medical history of multiple kidney stones in the past, atrial fibrillation, Crohn disease, GERD, hypertension, hyperlipidemia, presented to the ER and was admitted on 09/23/2019 due to left flank pain that started the night before. Workup in the emergency department showed bilateral nephrolithiasis with a large 9 mm obstructing stone in the left UPJ, associated with moderate to severe hydronephrosis on the left side. She was also found to be septic, urinary tract infection due to Escherichia coli, she received IV fluids. We started this patient on broad-spectrum antibiotics. Sensitivity came back and she was switched to levofloxacin which is sensitive to that bacteria. Dr. Harrell was consulted and he took this patient to the OR and put in an stent. He wants to clear this infection 1st before removing the stones, so he will follow this patient up as an outpatient to do probably lithotripsy and take care of the rest of the problems. The patient has been doing fine. She has been placed on her medications. Vital signs are stable. She will be discharged home and follow up with Dr. Harrell on 10/05/2019 at 1:50 P.m. DISCHARGE PHYSICAL EXAMINATION: Vital Signs: Temperature 98.4 degrees, pulse 72, respiratory rate 19, blood pressure 132/69. Oxygen saturation 100% on room air. HEENT: Head normocephalic. No trauma. PERRLA. Neck: Supple. No JVD. No masses. Central trachea. Chest: Clear to auscultation. No wheezing. No rales. Abdomen: Soft, nontender, nondistended. No hepatosplenomegaly. Extremities: No edema. No clubbing, no cyanosis. Neurological: The patient is awake, alert. She is oriented x3. No focal deficits. LABORATORY: Sodium 142, potassium 3.2, chloride 119, bicarbonate 9, BUN 14, creatinine 1.5, glucose 130, calcium 8. DISCHARGE MEDICATIONS: 1. Atorvastatin 10 mg p.o. daily, Imuran 100 mg p.o. tablet daily, Melyssa 180 mg p.o. daily, vitamin D3 2000 units p.o. daily. 2. Flonase 1 spray nasally daily as needed. Gabapentin 1 300 mg p.o. daily, levofloxacin 750 mg p.o. daily, losartan 25 mg p.o. daily, mesalamine 1.2 g tablets p.o. daily. Metformin 500 mg p.o. daily. Modafinil 300 mg p.o. daily. 3. Omeprazole 20 mg p.o. daily, potassium 20 mEq p.o. daily, Rythmol 150 mg p.o. t.i.d. Travoprost 1 drop in both eyes daily. TIME DISCHARGING THIS PATIENT: 20 minutes. cc: Carlitos Fletcher MD
[2019-09-27] MEDS ORDERED: KLOR-CON PO SCH (21:00)
== END 2019-09-27 10:52 | disposition home or self-care (01) | DRG 853 ==
LOC: ED 09:27 → EDIPHOLD 14:22 → 4N 17:59 → ICU 18:13 → 2N 09-25 14:51
PROVIDERS: ATTEND Internal Medicine